=== PATIENT | male | born 1950 | race Caucasian/White ===

== ENCOUNTER 2019-07-01 08:00 | Outpatient (RCR) | payer OTHER ==
--- NOTE | 2019-06-22 16:16 | RS.OPPTEV2 ---
Date of Note: 06/22/19 Visit #: 1 Number of visits approved by Insurance: n/a Date of Evaluation: 06/22/19 Payer Source: MEDICARE Surgery Performed?: No Treatment Diagnosis: rupture of R quadriceps muscle, initial encounter History of Condition/Mechanism of Injury:: Pain began 06/14/19. pt states he had worked out in the gym and then was playing "pickle ball" when he started to run he felt the pain in RLE. Prior Level of Function.....Patient was independent with: ADL's, Self Care, Ambulation/Mobility, Community Integration/Access Level of Function: Independent Functional Limitations: Sleep, Squatting, Community Access/Integration ( difficulty with stairs.) Current Subjective/complaints:: pt states that he is feeling better, however continues to have pain when going up steps. States he feels like his leg will give way. Treatment Side (optional): Right *Precautions: n/a Medical History Surgical History: Cervical Spine Smoking Status: Former smoker Hx Home Medications: xanax Patient's Goals: Get back to playing pickle ball and working out at the gym. Pain Assessment - Pain Description Pain Location: R lat thigh at area of insertion of quads. Pain Description: Aching Current Pain Intensity: 1-2/10 Worst Pain Intensity: 4-5/10 Functional Outcome Measure LE Functional Scale: 43 - G Codes & Severity Modifier G Codes & Modifier: n/a Source of G Code score: n/a Observation - Observation Inspection: pt with increased tightness in L hamstring, tightness on L gastroc. pt also demonstrates Posture: Forward Head, Rounded Shoulders Handedness: Right Gait - Gait Pattern General Gait Pattern Observation: No Deviations/Normal General Range of Motion: BUE WFL's. BLE WFL's Muscle Strength: BUE 5/5. RLE hip flex 5/5, knee flex 5/5, knee ext 4+/5. ankle DF/PF 5/5. LLE 5/5 Palpation Palpation Findings: Tenderness Comments:: tenderness noted in R lat quad to palpation. Sensation - Sensation Right Upper Extremity: Intact/Normal Left Upper Extremity: Intact/Normal Right Lower Extremity: Intact/Normal Left Lower Extremity: Intact/Normal Balance - Sitting Balance Static Sitting Balance: Normal Dynamic Sitting Balance: Normal - Standing Balance Static Standing Balance: Normal Dynamic Standing Balance: Normal - Treatment Modality: Ultrasound Parameters/Method Applied: 1.5w/cm2 x 8 mins Treatment Area: R lat quad Patient Position: Supine Interventions - Exercise/Activities/Manual Therapy Exercises/Activities: pt performed RLE towel stretch, AP, hamstring stretch, QS , HS, SLR x 5 -10 reps Manual Therapy: N/A HOME EXERCISE PROGRAM: pt given written HEP including: towel stretch, hamstring stretch, AP, QS, HS, SLR - Charges Timed Code Treatment Minutes: 49 Total Treatment Time: 54 Procedures billed for this date of service:: eval low, ultrasound EVALUATION COMPLEXITY LEVEL EVALUATION COMPLEXITY LEVEL: HISTORY: Low, EXAM OF BODY SYSTEMS: Low, CLINICAL PRESENTATION: Low, CLINICAL DECISION MAKING: Low Assessment Assessment: pt presents with R quad rupture with pain with mobility. pt also with muscle tightness in R hamstring as well as R gastroc. pt limited with activity due to pain. Patient Education: Home Exercise Program, Education of Plan of Care Rehab Potential: Good Short Term Goals Goal #1: pt independent with HEP Goal to be met by: 07/09/19 Goal #2: pt with no c/o pain at rest R quad. Goal to be met by: 07/09/19 Goal #3: Improve R quad strength 5/5 Goal to be met by: 07/09/19 Goal #4: Improve R hamstring flexibility Goal to be met by: 07/09/19 Registered Nurse First Assistant Goals Goal #1: pt able to return to normal activities including sporting activities Goal to be met by: 07/30/19 Goal #2: pt able to ascend/descend step without pain Goal to be met by: 07/30/19 Goal #3: Hamstring flexibility WFL's RLE Goal to be met by: 07/30/19 Plan - Treatment to be Provided Procedures: Therapeutic Exercises, Therapeutic Activity, Manual Therapy, Massage , Patient Education Modalities: Electrical Stimulation, Ultrasound/Phonophoresis, Class IV Laser, Cryotherapy, Hot Packs - Treatment Plan Frequency: 2-3x a week Duration: 6 weeks Dates of Registered Nurse First Assistant Goals: 07/30/19 Expiration date of current Insurance Approval:: n/a - Treatment Code (1) Rupture of right quadriceps muscle Code(s): S76.111A - STRAIN OF RIGHT QUADRICEPS MUSCLE, FASCIA AND TENDON, INIT Qualifiers: Encounter type: initial encounter Qualified Code(s): S76.111A - Strain of right quadriceps muscle, fascia and tendon, initial encounter (2) Hamstring tightness of right lower extremity Code(s): M62.9 - DISORDER OF MUSCLE, UNSPECIFIED (3) Musculoskeletal pain of right lower extremity Code(s): M79.604 - PAIN IN RIGHT LEG (4) Muscle weakness Code(s): M62.81 - MUSCLE WEAKNESS (GENERALIZED)
--- NOTE | 2019-06-23 11:45 | RS.OPPTDN ---
Subjective Date of Note: 06/23/19 Visit #: 2 Number of visits approved by Insurance: na Date of Evaluation: 06/22/19 Payer Source: MEDICARE Treatment Diagnosis: rupture of R quadriceps muscle, initial encounter Current Subjective/complaints:: Patient reports pain is mainly at the distal lateral quad today. States he noticed an increase in soreness after last session. States he has worked on HEP. *Precautions: n/a Pain Assessment - Pain Description Pain Location: right distal quad Pain Description: soreness Current Pain Intensity: mild to mod - Treatment Modality: Ultrasound Parameters/Method Applied: [id number] at 1.5w/cm2 to the distal right quads, with focus along the lateral quad. Patient Position: Supine Interventions - Exercise/Activities/Manual Therapy Exercises/Activities: Assisted stretching of the right hamstrings, gastroc, and soleus. Assisted stretching of the right quads with LE dropped off table. Instructed in standing wall stretch for gastroc, solues, and standing quad stretch. Total minutes of Exercise: 15mins Manual Therapy: long DTM massage along lateral quad. Instructed patient and demonstrated use of tennis ball and firm roller to massage lateral quad. Total minutes of Manual Therapy: 12mins HOME EXERCISE PROGRAM: pt given written HEP including: towel stretch, hamstring stretch, AP, QS, HS, SLR. Quad stretch ABS. Standing quad stretch. and standing at wall for gastrox and soleus stretches. - Charges Timed Code Treatment Minutes: 39mins Total Treatment Time: 41mins Procedures billed for this date of service:: US, EX, MT Assessment: Patient attentive to patient education and appears motivated to progress and return to exercise and sports activity. Patient Education: Body/Joint mechanics, Home Exercise Program, Home Safety, Activity Modification Comments: Instructed patient in use of stretching and ice to reduce pain. Advised patient to only resume stationary bike and ellpitical machine to avoid excessive stress to right quads. Patient demonstrates compliance with HEP?: Yes Short Term Goals Goal #1: pt independent with HEP Goal to be met by: 07/09/19 Progress towards Goal:: Progressing Goal #2: pt with no c/o pain at rest R quad. Goal to be met by: 07/09/19 Goal #3: Improve R quad strength 5/5 Goal to be met by: 07/09/19 Goal #4: Improve R hamstring flexibility Goal to be met by: 07/09/19 Chcf Goals Goal #1: pt able to return to normal activities including sporting activities Goal to be met by: 07/30/19 Goal #2: pt able to ascend/descend step without pain Goal to be met by: 07/30/19 Goal #3: Hamstring flexibility WFL's RLE Goal to be met by: 07/30/19 Plan Dates of Band Edger Goals: 07/30/19 Expiration date of current Insurance Approval:: 07/30/19 PLAN: Continue modalities, manual therapy, and exercise to reduce pain and return patient to PLOF.
--- NOTE | 2019-06-24 10:45 | RS.OPPTDN ---
Subjective Date of Note: 06/24/19 Visit #: 3 Number of visits approved by Insurance: na Date of Evaluation: 06/22/19 Payer Source: MEDICARE Treatment Diagnosis: rupture of R quadriceps muscle, initial encounter Current Subjective/complaints:: Patient reports an increase in soreness at the right lateral quads and lateral knee joint after last session, but states he expected this. States he has had muscle cramps in the right hamstring with supine quad stretch, but has increased flexibility and decreased muscle soreness after treatment today. *Precautions: n/a Pain Assessment - Pain Description Pain Location: right lateral quad and distal quad Pain Description: Tightness Pain Description: soreness Current Pain Intensity: mild - Treatment Modality: Ultrasound Parameters/Method Applied: 14mins with US at 1.5w/cm2 along the mid length of the lateral right quad, to the lateral right knee joint, and to the insersion just above the patella. US prior to EX and MT. Patient Position: Supine Interventions - Exercise/Activities/Manual Therapy Exercises/Activities: Assisted stretching of the right hamstrings, gastroc, and soleus. Passive stretching of the right piriformis and ITB. Assisted stretching of the right quads with LE dropped off table. Reviewed instruction of standing wall stretch for gastroc, solues, and standing quad stretch. Total minutes of Exercise: 15mins Manual Therapy: Long DTM massage along lateral and mid quad today. Began friction massage along the distal quad and tendon just superior to the right patella. Massage to the right hamstring prior to passive quad stretch to reduce muscle spasm. Total minutes of Manual Therapy: 14mins HOME EXERCISE PROGRAM: pt given written HEP including: towel stretch, hamstring stretch, AP, QS, HS, SLR. Quad stretch ABS. Standing quad stretch. and standing at wall for gastrox and soleus stretches. - Charges Timed Code Treatment Minutes: 43mins Total Treatment Time: 43mins Procedures billed for this date of service:: US, MT, EX Assessment: Patient attentive to all patient education. He is very motivated to progress with exercise and return to working out and sports activity. Patient Education: Body/Joint mechanics, Home Exercise Program Comments: Patient education of muscle function and benefits of alternated heat and ice with HEP. Patient demonstrates compliance with HEP?: Yes Short Term Goals Goal #1: pt independent with HEP Goal to be met by: 07/09/19 Progress towards Goal:: Partially Met Goal #2: pt with no c/o pain at rest R quad. Goal to be met by: 07/09/19 Progress towards Goal:: Progressing Goal #3: Improve R quad strength 5/5 Goal to be met by: 07/09/19 Goal #4: Improve R hamstring flexibility Goal to be met by: 07/09/19 Vibration Analyst Goals Goal #1: pt able to return to normal activities including sporting activities Goal to be met by: 07/30/19 Goal #2: pt able to ascend/descend step without pain Goal to be met by: 07/30/19 Goal #3: Hamstring flexibility WFL's RLE Goal to be met by: 07/30/19 Plan Dates of Vibration Analyst Goals: 07/30/19 Expiration date of current Insurance Approval:: 07/30/19 PLAN: Continue modalities, manual therapy, and exercise to reduce pain and return patient to PLOF.
--- NOTE | 2019-06-29 16:28 | RS.OPPTDN ---
Subjective Date of Note: 06/29/19 Visit #: 4 Number of visits approved by Insurance: na Date of Evaluation: 06/22/19 Payer Source: MEDICARE Treatment Diagnosis: rupture of R quadriceps muscle, initial encounter Current Subjective/complaints:: Patient reports improvement of muscle soreness along the distal right lateral quad and above the patella. States he was able to resume walking for exercise over the weekend with little increase in discomfort. *Precautions: n/a Pain Assessment - Pain Description Pain Location: right lateral quad, quad tension just above right patella Pain Description: soreness Current Pain Intensity: mild - Treatment Modality: Ultrasound Parameters/Method Applied: [id number] at 1.5w/cm2 to the lateral distal quads, and quad tendon just above patella. Patient Position: Supine - Heat/Cryotherapy Treatment: Cryotherapy (Demonstrated ice massage to right distal quad, 5mins. ) Interventions - Exercise/Activities/Manual Therapy Exercises/Activities: Assisted stretching of the right hamstrings, gastroc, and soleus. Passive stretching of the right piriformis and ITB. Assisted stretching of the right quads with LE dropped off table. Reviewed instruction of standing wall stretch for gastroc, solues, and standing quad stretch. Total minutes of Exercise: 12mins Manual Therapy: Long DTM massage along lateral and mid quad today. Friction massage along the distal quad and tendon just superior to the right patella. Total minutes of Manual Therapy: 12mins HOME EXERCISE PROGRAM: pt given written HEP including: towel stretch, hamstring stretch, AP, QS, HS, SLR. Quad stretch ABS. Standing quad stretch. and standing at wall for gastrox and soleus stretches. - Charges Timed Code Treatment Minutes: 39mins Total Treatment Time: 44mins Procedures billed for this date of service:: US, MT, EX Assessment: Pt progressing well with report of decreased pain and increase exercise activity. Patient Education: Home Exercise Program Patient demonstrates compliance with HEP?: Yes Short Term Goals Goal #1: pt independent with HEP Goal to be met by: 07/09/19 Progress towards Goal:: Met Goal #2: pt with no c/o pain at rest R quad. Goal to be met by: 07/09/19 Progress towards Goal:: Partially Met Goal #3: Improve R quad strength 5/5 Goal to be met by: 07/09/19 Progress towards Goal:: Partially Met Goal #4: Improve R hamstring flexibility Goal to be met by: 07/09/19 Nursing Assoc Goals Goal #1: pt able to return to normal activities including sporting activities Goal to be met by: 07/30/19 Progress towards goal: Progressing Goal #2: pt able to ascend/descend step without pain Goal to be met by: 07/30/19 Progress towards goal: Progressing Goal #3: Hamstring flexibility WFL's RLE Goal to be met by: 07/30/19 Progress towards goal: Progressing Plan Dates of Residential Goals: 07/30/19 Expiration date of current Insurance Approval:: 07/30/19 PLAN: Continue modalities and progress exercise to reduce pain and increase functional activity level.
--- NOTE | 2019-07-01 11:31 | RS.OPPTDN ---
Subjective Date of Note: 07/01/19 Visit #: 5 Number of visits approved by Insurance: na Date of Evaluation: 06/22/19 Payer Source: MEDICARE Treatment Diagnosis: rupture of R quadriceps muscle, initial encounter Current Subjective/complaints:: Patient reports he is increasing his workout slowly. States he was able to do a few minutes on the stepper machine with only minimal increase in right quad soreness. States he can go up and down steps/ stairs with min discomfort. *Precautions: n/a Pain Assessment - Pain Description Pain Location: Right lateral quad and quad tendon above patella Pain Description: Tightness Pain Description: soreness Current Pain Intensity: mild to mod sorenss - Treatment Modality: Ultrasound Parameters/Method Applied: [id number] US at 1.5w/cm2 along the lateral quad and the quad tendon just above the patella. Patient Position: Supine Interventions - Exercise/Activities/Manual Therapy Exercises/Activities: Assisted stretching of the right hamstrings, gastroc, and soleus. Passive stretching of the right piriformis and ITB. Stretching of the right quads and hip flexor with LE dropped off table. Isometric knee flexion and extension with hip/knee at 90/90. Total minutes of Exercise: 16mins Manual Therapy: DTM and friction massage along the mid and lateral quads, and to tendon just above patella. Total minutes of Manual Therapy: 15mins HOME EXERCISE PROGRAM: pt given written HEP including: towel stretch, hamstring stretch, AP, QS, HS, SLR. Quad stretch ABS. Standing quad stretch. and standing at wall for gastrox and soleus stretches. - Objective Findings Observations,measurements,etc.: Right quad 4+ to 5/5 with discomfort at lateral quad. Right hamstrings 5/5 MMT. - Charges Timed Code Treatment Minutes: 43mins Total Treatment Time: 45mins Procedures billed for this date of service:: US, MT, EX Assessment: Patient progressing with strength and with working back into full workout. He continues to have quad soreness that limits his activity level. Patient Education: Home Exercise Program Patient demonstrates compliance with HEP?: Yes Short Term Goals Goal #1: pt independent with HEP Goal to be met by: 07/09/19 Progress towards Goal:: Met Goal #2: pt with no c/o pain at rest R quad. Goal to be met by: 07/09/19 Progress towards Goal:: Partially Met Comments:: mild discomfort at rest Goal #3: Improve R quad strength 5/5 Goal to be met by: 07/09/19 Progress towards Goal:: Partially Met Comments:: 4+ to 5/5 with discomfort at lateral quad Goal #4: Improve R hamstring flexibility Goal to be met by: 07/09/19 Floor Sweeper Goals Goal #1: pt able to return to normal activities including sporting activities Goal to be met by: 07/30/19 Progress towards goal: Progressing Goal #2: pt able to ascend/descend step without pain Goal to be met by: 07/30/19 Progress towards goal: Partially Met Comments: Reports ascend/descent steps with mild discomfort Goal #3: Hamstring flexibility WFL's RLE Goal to be met by: 07/30/19 Progress towards goal: Progressing Plan Dates of Jail Goals: 07/30/19 Expiration date of current Insurance Approval:: 07/30/19 PLAN: Continue modalities and progress exercise to reduce pain and return patient to PLOF.
== END 2019-07-03 23:59 ==
PROVIDERS: ATTEND Orthopaedic Surgery
DX: S76.111D Strain of right quadriceps muscle, fascia and tendon, subsequent encounter (principal)

== ENCOUNTER 2025-07-22 16:56 | Inpatient (IN) ==
[2025-07-22 18:03] LABS: IMMATURE GRANULOCYTE # (AUTO) 0.2 (0.0-1.0); IMMATURE GRANULOCYTE % (AUTO) 0.8 % (0.0-5.0); RDW COEFFICIENT OF VARIATION 12.2 % (11.6-14.8)
[2025-07-22 18:13] LABS: CREATININE 0.91 mg/dL (0.60-1.10)
--- NOTE | 2025-07-22 19:00 | ED.PDOC ---
General HPI ED Provider: Dr. JARED CLEANING MD Chief Complaint: Extremity Swelling/Pain Stated Complaint: 74 years old male comes emergency room for left forearm cellulitis. Patient was seen here yesterday for the same problem received 2 g of Ancef IV and discharged home with Keflex he was instructed if he sees the problem worsening to come back to the emergency room. Patient reports that the swelling has been getting worse and the redness has extended to his left arm and left hand. Denies any fever no chest pain or shortness of breath no nausea or vomiting no change in bowel or urine. Time Seen by Provider: 07/22/25 17:20 Information Source: Patient Primary Care Provider: LETTY LANIER Nursing and Triage Documentation Reviewed and Agree: Yes Opioid Naive vs. Tolerant What is Opioid Naive?: *Opioid Naive implies the patient is not already taking opioids or not chronically receiving opioids on a daily basis. *PRN dosing is not "usually" associated with tolerance. *Patients are at higher risk of over-sedation and aspiration. What is Opioid Tolerant?: *Opioid Tolerance implies less than the expected response to an opioid. *Acquired tolerance is defined by the patient taking 60mg of oral morphine daily (or equianalgesic dose of another opioid) for 1 week or more. *Often associated with chronic pain. *May take more than usual dose to achieve desired pain control. Review of Systems Review Of Systems Constitutional: Reports No symptoms All Other Systems: Reviewed and Negative [facility] Medical History Anterior cervical adenopathy anterior cervical fusion in the R59.0 - Localized enlarged lymph nodes (ICD-10) Pneumonia J18.9 - Pneumonia, unspecified organism (ICD-10) Family History (Updated 07/22/25 @ 21:41 by NYASIA SANDOVAL RN) FATHER Colon cancer Mother Old age Social History (Updated 07/22/25 @ 21:47 by NYASIA SANDOVAL RN) Smoking and tobacco status: Former smoker Alcohol intake: never Substance use type: does not use Trisha/scientologist: TENRIISM Physical Exam Physical Exam Appearance: Reports Well-appearing Respiratory: Reports Airway patent, Breath sounds clear and Breath sounds equal Cardiovascular: Reports RRR, Pulses normal, No rub and No murmur Musculoskeletal: Reports Normal strength, ROM intact and Edema (And erythema of the left forearm extended to the lower arm and proximal hand intact radial pulse no signs of compartment syndrome intact sensations in the left hand no definitive induration or fluctuation or fluid to be drained) Skin: Reports Warm and Normal color Neurological: Reports Sensation intact and Motor intact Psychiatric: Reports Affect appropriate Course Course 07/22/25 17:47 07/22/25 17:47 Orders, Labs, Meds: Lab Review 07/22/25 17:47 WBC 20.31 H RBC 4.37 L Hgb 13.7 L Hct 40.7 L MCV 93.1 MCH 31.4 H MCHC 33.7 RDW Coeff of Leonor 12.2 Plt Count 117 L Immature Gran % (Auto) 0.8 Neut % (Auto) 91.3 H Lymph % (Auto) 3.3 L Benton % (Auto) 3.6 Eos % (Auto) 0.8 Baso % (Auto) 0.2 Neut # (Auto) 18.5 H Lymph # (Auto) 0.7 Benton # (Auto) 0.7 Eos # (Auto) 0.2 Baso # (Auto) 0.0 Immature Gran # (Auto) 0.2 Sodium 136.7 Potassium 4.04 Chloride 106.5 Carbon Dioxide 24.9 Anion Gap 9.34 BUN 23.3 H Creatinine 0.91 D Estimated GFR (MDRD) 81.00 BUN/Creatinine Ratio 25.60 Glucose 128.3 H Lactic Acid 0.92 Calcium 8.65 Total Bilirubin 0.98 AST 28.0 ALT 22.9 Alkaline Phosphatase 85.7 Total Protein 6.01 L Albumin 3.55 Globulin 2.46 Albumin/Globulin Ratio 1.44 Orders Category Date Time Status ADMIT PATIENT INPATIENT .TO [facility] (NON-MONITORED ADMISSION 07/22/25 19:00 Active BED) BLOOD CULTURE (ED ONLY) Stat LAB 07/22/25 17:55 Received CBC W/ AUTO DIFF Stat LAB 07/22/25 17:47 Completed CMP [COMPREHENSIVE METABOLIC PANEL] Stat LAB 07/22/25 17:47 Completed LACTIC ACID Stat LAB 07/22/25 17:47 Completed Cefazolin Sodium/Dextrose,Iso [Ancef 2 gm/50 ml Premix] Meds 07/22/25 18:38 Discontinued 2 gm in 50 ml IV ONCE Medications Generic Name Dose Route Start Last Admin Trade Name Freq PRN Reason Stop Dose Admin Acetaminophen 650 mg 07/22/25 20:22 Acetaminophen 325 Mg Tablet PO Q4H PRN Mild Pain Hydrocodone Bitart/Acetaminophen 1 tab 07/22/25 20:22 Hydrocodone Bit/Acetaminophen 5/325 Mg Tablet PO Q6HR PRN MODERATE PAIN Alprazolam 1 mg 07/22/25 20:25 07/22/25 22:07 Alprazolam 0.5 Mg Tablet PO 1 mg DAILY PRN Administration anxiety Cholecalciferol 1,000 unit 07/23/25 09:00 Cholecalciferol (Vitamin D3) 1,000 Unit (25 Mcg) Tablet PO DAILY SHIVANI Diclofenac Sodium 75 mg 07/22/25 20:25 07/22/25 22:08 Diclofenac Sodium 75 Mg Tablet.Dr PO 75 mg 2XD PRN Administration pain Cefazolin Sodium/Dextrose 2 gm in 50 mls @ 75 mls/hr 07/23/25 02:30 Ancef 2 Gm/50 Ml Premix IV 07/26/25 02:29 Q8HR SHIVANI Ondansetron HCl 4 mg 07/22/25 20:22 Ondansetron Hcl/Pf 4 Mg/2 Ml Sdv IVP Q6H PRN Nausea / Vomiting Tamsulosin HCl 0.4 mg 07/23/25 09:00 Tamsulosin Hcl 0.4 Mg Cap.Er.24h PO DAILY SHIVANI Discontinued Medications Generic Name Dose Route Start Last Admin Trade Name Freq PRN Reason Stop Dose Admin Cefazolin Sodium/Dextrose 2 gm in 50 mls @ 75 mls/hr 07/22/25 18:38 07/22/25 19:11 Ancef 2 Gm/50 Ml Premix IV 07/22/25 19:17 75 mls/hr ONCE ONE Administration Vital Signs: Temp Pulse Resp BP Pulse Ox 07/22/25 17:18 97.3 F L 74 16 157/77 H 95 Patient with left upper extremity cellulitis white blood cell count 20,000 with left shift patient is not septic but given the high white cell count and the failure to improve with oral antibiotics patient will need to be admitted for IV antibiotics he was given 2 g of Ancef here in the emergency room and his case was discussed with the hospitalist on-call Angelic and she accepted the patient to be admitted for further IV antibiotics. Discharge Plan Discharge Patient Disposition: ADMITTED INPATIENT Discharge Problem: Cellulitis of left upper extremity Did you review [place] [employer] WORKER for ALL controlled substances?: Not Applicable ED Provider: JARED CLEANING Condition: Stable
[2025-07-22] MEDS: ANCEF 2 GM/50 ML PREMIX 2 GM/50 ML BAG IV ONE (19:11)
[2025-07-22] MEDS: XANAX PO PRN (22:07)
[2025-07-22] MEDS: VOLTAREN PO PRN (22:08)
[2025-07-22 22:22] VITALS: BMI 30.5
[2025-07-23] MEDS: ZOFRAN SDV IVP PRN (01:28)
[2025-07-23] MEDS: TYLENOL PO PRN (01:29)
[2025-07-23] MEDS: ANCEF 2 GM/50 ML PREMIX 2 GM/50 ML BAG IV SCH ×2 (01:30→09:19)
[2025-07-23 05:30] LABS: IMMATURE GRANULOCYTE # (AUTO) 0.3 (0.0-1.0); IMMATURE GRANULOCYTE % (AUTO) 1.6 % (0.0-5.0); RDW COEFFICIENT OF VARIATION 12.2 % (11.6-14.8)
[2025-07-23 05:43] LABS: CREATININE 0.87 mg/dL (0.60-1.10)
[2025-07-23] MEDS: NORCO 5-325 PO PRN (09:18)
[2025-07-23] MEDS: VITAMIN D PO SCH (09:18)
[2025-07-23] MEDS: FLOMAX PO SCH (09:18)
--- NOTE | 2025-07-23 10:13 | PCM ---
Date of Service Date Seen by Provider: 07/23/25 Time Seen by Provider: 08:30 Admit Day/Time Admission Date: 07/22/25 Admission Time: 19:00 Reason for Admission Chief Complaint: LFT UPPER EXTREMITY CELLULITIS Hospital Provider Hospital Provider: SANNA NEW PA-C, [facility] Primary Care Physician Primary Care Physician: LETTY LANIER History of Present Illness History of Present Illness: Patient is a 74-year-old male with past medical history of BPH, overall healthy gentleman who presented to the ER for the second time with left upper extremity cellulitis. Patient presented on for worsening redness and swelling of his left arm. He states that he works in [employer] and is often having small scrapes on his arms. He was noted to have a white count of 23, lactic of 3. He was given fluids and antibiotics and ultimately was discharged home. He states he took a couple doses of the Keflex he was prescribed but his arm continued to worsen. He presented again on 07/22. White blood cell count is 20. Patient has swelling and erythema of his left extremity. He was given cefazolin. Admitted to [facility]. Patient states his arm feels somewhat better today. He continues to have swelling. No specific joint pain. He has good range of motion of his joints. Overall no significant pain. White blood cell count minimally improved this morning. Patient did have a fever of 101.6 overnight and an episode of vomiting. He feels better now. A1c was 5.12. Patient is an avid pickleball player and fisherman. He is normally very active. Case Discussed With Case Discussed With: Patient's case was discussed with the ER Physicians, Dr. Wallace. [facility] Medical History Anterior cervical adenopathy anterior cervical fusion in the R59.0 - Localized enlarged lymph nodes (ICD-10) Pneumonia J18.9 - Pneumonia, unspecified organism (ICD-10) Family History (Updated 07/22/25 @ 21:41 by NYASIA SANDOVAL RN) FATHER Colon cancer Mother Old age Social History (Updated 07/22/25 @ 21:47 by NYASIA SANDOVAL RN) Smoking and tobacco status: Former smoker Alcohol intake: never Substance use type: does not use Trisha/zoroastrian: SYNAGOGUE Allergies Allergies Allergy/AdvReac Type Severity Reaction Status Date / Time No Known Allergies Allergy Verified 07/22/25 17:23 Current Medications Home Medications Acetaminophen (Acetaminophen 325 Mg Tablet) 650 mg PO Q4H PRN PRN Reason: Mild Pain Last Admin: 07/23/25 01:29 Dose: 650 mg Hydrocodone Bitart/Acetaminophen (Hydrocodone Bit/Acetaminophen 5/325 Mg Tablet) 1 tab PO Q6HR PRN PRN Reason: MODERATE PAIN Last Admin: 07/23/25 09:18 Dose: 1 tab Alprazolam (Alprazolam 0.5 Mg Tablet) 1 mg PO DAILY PRN PRN Reason: anxiety Last Admin: 07/22/25 22:07 Dose: 1 mg Cholecalciferol (Cholecalciferol (Vitamin D3) 1,000 Unit (25 Mcg) Tablet) 1,000 unit PO DAILY SHIVANI Last Admin: 07/23/25 09:18 Dose: 1,000 unit Diclofenac Sodium (Diclofenac Sodium 75 Mg Tablet.Dr) 75 mg PO 2XD PRN PRN Reason: pain Last Admin: 07/23/25 09:18 Dose: 75 mg Cefazolin Sodium/Dextrose (Ancef 2 Gm/50 Ml Premix) 2 gm in 50 mls @ 75 mls/hr IV Q8HR SHIVANI Stop: 07/26/25 07:59 Last Admin: 07/23/25 09:19 Dose: 75 mls/hr Ondansetron HCl (Ondansetron Hcl/Pf 4 Mg/2 Ml Sdv) 4 mg IVP Q6H PRN PRN Reason: Nausea / Vomiting Last Admin: 07/23/25 01:28 Dose: 4 mg Sodium Chloride (0.9% Sodium Chloride 10 Ml Disp.Syrin) 1 syr IVF PRN PRN PRN Reason: as needed Last Admin: 07/23/25 01:33 Dose: 1 syr Tamsulosin HCl (Tamsulosin Hcl 0.4 Mg Cap.Er.24h) 0.4 mg PO DAILY SHIVANI Last Admin: 07/23/25 09:18 Dose: 0.4 mg alprazolam 1 mg tablet (Xanax) 1 mg PO QDAY 11/23/19 [History Confirmed 07/22/25] cephalexin 500 mg capsule 500 mg PO Q8H #30 caps 07/21/25 [Rx Confirmed 07/22/25] cholecalciferol (vitamin D3) 25 mcg (1,000 unit) capsule 25 mcg PO DAILY 07/21/25 [History Confirmed 07/22/25] diclofenac sodium 75 mg tablet,delayed release 75 mg PO 2XD 07/21/25 [History Confirmed 07/22/25] tamsulosin 0.4 mg capsule 0.4 mg PO DAILY 07/21/25 [History Confirmed 07/22/25] Opioid Naive vs. Tolerant Does Patient Take Opioids?: No Is Patient Opioid Naive?: Yes What is Opioid Naive?: *Opioid Naive implies the patient is not already taking opioids or not chronically receiving opioids on a daily basis. *PRN dosing is not "usually" associated with tolerance. *Patients are at higher risk of over-sedation and aspiration. Is Patient Opioid Tolerant?: No What is Opioid Tolerant?: *Opioid Tolerance implies less than the expected response to an opioid. *Acquired tolerance is defined by the patient taking 60mg of oral morphine daily (or equianalgesic dose of another opioid) for 1 week or more. *Often associated with chronic pain. *May take more than usual dose to achieve desired pain control. Review of Systems Constitutional: Reports Fever and Fatigue Head: Reports Normocephalic and Atraumatic Cardiovascular: Denies Chest pain or Chest Pressure Respiratory: Denies Cough or Shortness of air Gastrointestinal: Denies Nausea, Vomiting, Diarrhea, Abdominal pain or Melena Genitourinary: Denies Hematuria or Frequency Dermatologic: Reports Other (left arm cellulitis ) Physical examination Most Recent Vital Signs: Most Recent Vital Signs Temperature 98.1 F 07/23/25 05:11 Temperature Source Oral 07/23/25 05:11 Temperature Source Infrared 07/22/25 17:18 Pulse Rate 71 07/23/25 05:11 Respiratory Rate 18 07/23/25 05:11 Blood Pressure 139/73 07/23/25 05:11 Blood Pressure Mean 95 07/23/25 05:11 Blood Pressure Right Arm 167/86 07/22/25 20:49 Blood Pressure Location Right Arm 07/23/25 05:11 Blood Pressure Position Supine 07/23/25 05:11 O2 Sat by Pulse Oximetry 96 07/23/25 05:11 Oxygen Delivery Method Room Air 07/23/25 05:11 Height 5 ft 8 in 07/22/25 20:49 Weight 91.2 kg 07/22/25 20:49 Appearance: Positive No Apparent Distress and Alert and Oriented x3 Skin: Positive [place], Warm, Good Turgor and Good Color HEENT: Positive Normocephalic and Atraumatic Neck: Positive Supple and Midline Trachea Chest/Lungs: Positive Clear to Auscultation Bilaterally; Negative Rales, Rhonci or Wheezes Heart: Positive RRR GI/: Positive Soft, Nontender, Bowel Sounds Normal and No Distention Neurological: Positive Cranial Nerves Intact, Alert, Oriented and Muscle Strength 5/5 in Upper and Lower Extremities Bilaterally Psychiatric: Positive Oriented x4, Appropriate Mood and Appropriate Affect Additional Findings: left upper ext - pulses and sensation intact, generalized swelling noted but no induration or fluctuance noted. Has most swelling proximal arm. Good ROM of joints with no significant pain. Labs This Visit Labs This Visit: Labs This Visit 07/22/25 07/23/25 17:47 05:15 WBC 20.31 H 19.47 H RBC 4.37 L 4.13 L Hgb 13.7 L 12.9 L Hct 40.7 L 39.4 L MCV 93.1 95.4 H MCH 31.4 H 31.2 H MCHC 33.7 32.7 RDW Coeff of Leonor 12.2 12.2 Plt Count 117 L 115 L Immature Gran % (Auto) 0.8 1.6 Neut % (Auto) 91.3 H 89.5 H Lymph % (Auto) 3.3 L 3.5 L Robertson % (Auto) 3.6 4.2 Eos % (Auto) 0.8 0.9 Baso % (Auto) 0.2 0.3 Neut # (Auto) 18.5 H 17.4 H Lymph # (Auto) 0.7 0.7 Robertson # (Auto) 0.7 0.8 Eos # (Auto) 0.2 0.2 Baso # (Auto) 0.0 0.1 Immature Gran # (Auto) 0.2 0.3 Sodium 136.7 134.1 L Potassium 4.04 4.05 Chloride 106.5 107.3 H Carbon Dioxide 24.9 23.6 Anion Gap 9.34 7.25 BUN 23.3 H 18.3 Creatinine 0.91 D 0.87 Estimated GFR (MDRD) 81.00 86.00 BUN/Creatinine Ratio 25.60 21.03 Glucose 128.3 H 123.1 H Hemoglobin A1c 5.12 Lactic Acid 0.92 Calcium 8.65 8.52 Total Bilirubin 0.98 0.67 AST 28.0 48.4 ALT 22.9 36.0 Alkaline Phosphatase 85.7 107.0 Total Protein 6.01 L 5.67 L Albumin 3.55 3.18 L Globulin 2.46 2.49 Albumin/Globulin Ratio 1.44 1.27 Procalcitonin 0.46 H Review Statement Review Statement: I have independently reviewed and interpreted the labs/EKGs/imaging that were ordered by the ER provider. I have reviewed all outside records that are available currently in our EMR including imaging/notes/labs from previous visits. Plan Plan: 1. Acute cellulitis of left upper extremity, failed outpatient abx - Cont cefazolin, mrsa swab pending, pain control. Trend wbc count. Tylenol prn fever. A1c normal. Ice prn. 2. BPH - Cont home meds 3. Thrombocytopenia - mildly worsened. Will need outpt follow up to ensure improvement following infection. DVT Prophylaxis: Avoiding in light of thrombocytopenia Time Spent: Greater than 80 minutes spent with patient, 50% of the time spent with this patient was devoted to counseling and coordination of care. Advanced Care Plannin minutes spent discussing advance care planning. Admit to: Inpatient Discussed Plan of Care with Dr. Gabe Mckeon. Medications Medication Orders: Medications Ordered Category Date Time Status 0.9 % Sodium Chloride [Saline Flush] Meds 07/23/25 01:31 Active 1 syr IVF PRN PRN Acetaminophen [Tylenol] Meds 07/22/25 20:22 Active 650 mg PO Q4H PRN Alprazolam [Xanax] Meds 07/22/25 20:25 Active 1 mg PO DAILY PRN anxiety Cefazolin Sodium/Dextrose,Iso [Ancef 2 gm/50 ml Premix] Meds 07/23/25 08:00 Active 2 gm in 50 ml IV Q8HR Cholecalciferol (Vitamin D3) [Vitamin D] Meds 07/23/25 09:00 Active 1,000 unit PO DAILY Diclofenac Sodium [Voltaren] Meds 07/22/25 20:25 Active 75 mg PO 2XD PRN pain Hydrocodone Bit/Acetaminophen [[place] 5-325] Meds 07/22/25 20:22 Active 1 tab PO Q6HR PRN Ondansetron HCl/Pf [Zofran Sdv] Meds 07/22/25 20:22 Active 4 mg IVP Q6H PRN Tamsulosin HCl [Flomax] Meds 07/23/25 09:00 Active 0.4 mg PO DAILY
[2025-07-24 05:20] LABS: IMMATURE GRANULOCYTE # (AUTO) 0.1 (0.0-1.0); IMMATURE GRANULOCYTE % (AUTO) 0.8 % (0.0-5.0); RDW COEFFICIENT OF VARIATION 12.1 % (11.6-14.8)
[2025-07-24 05:37] LABS: CREATININE 0.89 mg/dL (0.60-1.10)
[2025-07-24] MEDS: VANCOMYCIN 750 MG/150 ML BAG 750 MG/150 ML BAG IV ONE (09:18)
[2025-07-24] MEDS: VANCOMYCIN 1.5 GRAM/300 ML PREMIX 1.5 GM/300 ML BAG IV ONE (10:05)
[2025-07-24] MEDS: FLORASTOR PO SCH (10:06)
--- NOTE | 2025-07-24 10:59 | PCM.PROG ---
Date/Time Seen Date Seen by Provider: 07/24/25 Time Seen by Provider: 09:00 Provider Provider: SANNA NEW PA-C, [facility] Chief Complaint Chief Complaint: LFT UPPER EXTREMITY CELLULITIS Subjective Subjective: Patients labs on paper have improved but his erythema has worsened and spread. No fever overnight. Clinically feels good except for the worsening erythema. BP has been running high. States he's noticed it being higher the last couple months. Objective Appearance: Positive Well-appearing, Well-nourished, No Apparent Distress and Alert and Oriented x3 Chest/Lungs: Positive Clear to Auscultation Bilaterally; Negative Rales, Rhonci or Wheezes Heart: Positive RRR GI/: Positive Soft, Nontender, Bowel Sounds Normal and No Distention Neurological: Positive Cranial Nerves Intact, Alert, Oriented and Muscle Strength 5/5 in Upper and Lower Extremities Bilaterally Additional Findings: LUE - erythema has worsened outside of the lines drawn, no induration or fluctuance noted, compartments are soft, sensation and pulses intact, no pain with palpation, good ROM of all joints. Vital Signs Vital Signs: Vital Signs: Last 24 Hours 07/23/25 14:00 07/23/25 19:29 07/23/25 21:19 Temperature 98.5 F 98.8 F Temperature Source Oral Temporal Artery Scan Pulse Rate 85 67 Respiratory Rate 20 20 Blood Pressure 183/93 H 165/80 H Blood Pressure Mean 123 108 Blood Pressure Location Right Arm Right Arm Blood Pressure Position Supine Supine O2 Sat by Pulse Oximetry 96 94 L Oxygen Delivery Method Room Air Room Air Room Air 07/24/25 05:15 Temperature 98 F Temperature Source Temporal Artery Scan Pulse Rate 61 Respiratory Rate 18 Blood Pressure 133/49 L Blood Pressure Mean 77 Blood Pressure Location Right Arm Blood Pressure Position Supine O2 Sat by Pulse Oximetry 95 Oxygen Delivery Method Room Air Lab Results Lab Results: Lab Results: Last 24 Hours 07/24/25 05:07 WBC 15.84 H RBC 3.94 L Hgb 12.4 L Hct 37.6 L MCV 95.4 H MCH 31.5 H MCHC 33.0 RDW Coeff of Leonor 12.1 Plt Count 131 L Immature Gran % (Auto) 0.8 Neut % (Auto) 85.6 H Lymph % (Auto) 5.6 L [place] % (Auto) 4.9 Eos % (Auto) 2.8 Baso % (Auto) 0.3 Neut # (Auto) 13.6 H Lymph # (Auto) 0.9 [place] # (Auto) 0.8 Eos # (Auto) 0.5 Baso # (Auto) 0.0 Immature Gran # (Auto) 0.1 Sodium 134.2 L Potassium 3.78 Chloride 104.9 Carbon Dioxide 27.1 Anion Gap 5.98 BUN 17.0 Creatinine 0.89 Estimated GFR (MDRD) 84.00 BUN/Creatinine Ratio 19.10 Glucose 108.3 H Calcium 8.49 Total Bilirubin 0.55 AST 33.1 ALT 27.1 Alkaline Phosphatase 125.6 H Total Protein 5.54 L Albumin 3.02 L Globulin 2.52 Albumin/Globulin Ratio 1.19 Procalcitonin 0.31 H Additional Comments Additional Comments: I have independently reviewed and interpreted the labs/EKGs/imaging ordered during this hospital stay. I have reviewed outside records that are available in our EMR that pertain to medical stay including imaging/notes/labs from previous visits. Active Medications Active Medications: Medications Generic Name Dose Route Start Last Admin Trade Name Freq PRN Reason Stop Dose Admin Acetaminophen 650 mg 07/22/25 20:22 07/23/25 01:29 Acetaminophen 325 Mg Tablet PO 650 mg Q4H PRN Administration Mild Pain Hydrocodone Bitart/Acetaminophen 1 tab 07/22/25 20:22 07/23/25 09:18 Hydrocodone Bit/Acetaminophen 5/325 Mg Tablet PO 1 tab Q6HR PRN Administration MODERATE PAIN Alprazolam 1 mg 07/22/25 20:25 07/23/25 21:47 Alprazolam 0.5 Mg Tablet PO 1 mg DAILY PRN Administration anxiety Cholecalciferol 1,000 unit 07/23/25 09:00 07/24/25 08:33 Cholecalciferol (Vitamin D3) 1,000 Unit (25 Mcg) Tablet PO 1,000 unit DAILY SHIVANI Administration Diclofenac Sodium 75 mg 07/22/25 20:25 07/23/25 21:47 Diclofenac Sodium 75 Mg Tablet. PO 75 mg 2XD PRN Administration pain VANCOMYCIN/WATER FOR INJ (PEG) 1.5 gm in 300 mls @ 200 mls/hr 07/24/25 10:00 07/24/25 10:05 Vancomycin 1.5 Gram/300 Ml Premix IV 07/24/25 11:29 200 mls/hr ONCE ONE Administration VANCOMYCIN/WATER FOR INJ (PEG) 1.25 gm in 250 mls @ 250 mls/hr 07/24/25 21:00 Vancomycin 1.25 Gm/250 Ml Bag IV 07/27/25 20:59 Q12HR SHIVANI Ampicillin Sodium/Sulbactam 100 mls @ 200 mls/hr 07/24/25 12:00 Sodium 3 gm/ Sodium Chloride IV 07/27/25 11:59 Q6HR SHIVANI Ondansetron HCl 4 mg 07/22/25 20:22 07/23/25 01:28 Ondansetron Hcl/Pf 4 Mg/2 Ml Sdv IVP 4 mg Q6H PRN Administration Nausea / Vomiting Saccharomyces Boulardii 250 mg 07/24/25 09:30 07/24/25 10:06 Saccharomyces Boulardii 250 Mg Capsule PO 250 mg BID SHIVANI Administration Sodium Chloride 1 syr 07/23/25 01:31 07/23/25 20:24 0.9% Sodium Chloride 10 Ml Disp.Syrin IVF 1 syr PRN PRN Administration as needed Tamsulosin HCl 0.4 mg 07/23/25 09:00 07/24/25 08:33 Tamsulosin Hcl 0.4 Mg Cap.Er.24h PO 0.4 mg DAILY SHIVANI Administration Plan Plan: 1. Acute cellulitis of left upper extremity, failed outpatient abx - Will change to unasyn and add vanc for broader coverage, mrsa swab pending, pain control. Trend wbc count. Tylenol prn fever. A1c normal. Ice prn. 2. BPH - Cont home meds 3. Thrombocytopenia - Improved today. Will need outpt lab follow up to ensure improvement following infection. 4. Hypertension - Patient states this has been ongoing last couple months. Will start low dose lisinopril. DVT Prophylaxis: Avoiding in light of thrombocytopenia Review Statement Review Statement: I have personally discussed and reviewed the patient's visit/currently labs/imaging/decision making with Dr. Mckeon, my supervising attending. Greater that 50 minutes spent with patient, 50% of the time spent with this patient was devoted to counseling and coordination of care.
[2025-07-24] MEDS: ZESTRIL PO SCH (11:52)
[2025-07-24] MEDS: UNASYN 3 GM in SODIUM CHLORIDE 100ML 100 ML IV SCH (13:08)
[2025-07-24] MEDS: VANCOMYCIN 1.25 GM/250 ML BAG 1.25 GM/250 ML BAG IV SCH (20:57)
[2025-07-24 21:10] LABS: CREATININE 0.96 mg/dL (0.60-1.10)
[2025-07-25 05:36] LABS: IMMATURE GRANULOCYTE # (AUTO) 0.1 (0.0-1.0); IMMATURE GRANULOCYTE % (AUTO) 1.1 % (0.0-5.0); RDW COEFFICIENT OF VARIATION 11.9 % (11.6-14.8)
[2025-07-25 05:46] LABS: CREATININE 0.8 mg/dL (0.60-1.10)
--- NOTE | 2025-07-25 09:32 | DCSUM ---
Admission Date Admission Date: 07/22/25 Discharge Date Discharge Date: 07/25/25 Admission Diagnosis Admission Diagnosis: 1. Acute cellulitis of left upper extremity, failed outpatient abx 2. BPH 3. Thrombocytopenia Discharge Diagnosis Discharge Diagnosis: 1. Acute cellulitis of left upper extremity, failed outpatient abx - Improving 2. BPH - Chronic, stable 3. Thrombocytopenia - Resolved 4. Hypertension - Patient states this has been ongoing last couple months. Started lisinopril 10 mg daily during stay Hospital Provider Hospital Provider: LOLA PETIT, [facility] Primary Care Physician Primary Care Physician: LETTY LANIER Summary of History and Physical Summary of History and Physical: Patient is a 74-year-old male with past medical history of BPH, overall healthy gentleman who presented to the ER for the second time with left upper extremity cellulitis. Patient presented on for worsening redness and swelling of his left arm. He states that he works in [employer] and is often having small scrapes on his arms. He was noted to have a white count of 23, lactic of 3. He was given fluids and antibiotics and ultimately was discharged home. He states he took a couple doses of the Keflex he was prescribed but his arm continued to worsen. He presented again on 07/22. White blood cell count is 20. Patient has swelling and erythema of his left extremity. He was given cefazolin. Admitted to [facility]. Patient states his arm feels somewhat better today. He continues to have swelling. No specific joint pain. He has good range of motion of his joints. Overall no significant pain. White blood cell count minimally improved this morning. Patient did have a fever of 101.6 overnight and an episode of vomiting. He feels better now. A1c was 5.12. Patient is an avid pickleball player and fisherman. He is normally very active. Hospital Course Subjective: Patient was initially treated for acute cellulitis of left upper extremity due to failing outpatient keflex with cefazolin. Arm continued to swell and spread further up the arm as well as fever. Switched coverage to unasyn and vanc. MRSA swab obtained and negative. White blood cell count has trended down and is 13 today. Thrombocytopenia present on admission and likely due to infection. Platelets have returned to normal as of this am. BP was noted to be trending high and started lisinopril 10 mg daily which has shown improvements. Patient has not had a fever >24 hours. Feeling much better and arm is improving greatly. Discussed antibiotic regimen with pharmacy and agree that augmentin is appropriate choice. Sent Rx to complete 7 day course as well as norco for pain, florastor to prevent further infections, and lisinopril. Discussed to contact provider if fever returns or arm worsens. Follow-up with PCP later this week. Appearance: Pleasant, No Apparent Distress and Alert HEENT: MMM, Supple and No JVD CVS: No Murmur Abdomen: Soft, Non-Tender and No Distention Respiratory: No Dyspnea Extremities: No Calf Tenderness and Other (mild erythema and swelling to L lower arm, no open areas or noted drainage) Vital Signs: Most Recent Vital Signs Temperature 97.6 F 07/25/25 05:38 Temperature Source Temporal Artery Scan 07/25/25 05:38 Temperature Source Infrared 07/22/25 17:18 Pulse Rate 57 L 07/25/25 05:38 Respiratory Rate 16 07/25/25 05:38 Blood Pressure 150/86 H 07/25/25 05:38 Blood Pressure Mean 107 07/25/25 05:38 Blood Pressure Right Arm 167/86 07/22/25 20:49 Blood Pressure Location Right Arm 07/25/25 05:38 Blood Pressure Position Supine 07/25/25 05:38 O2 Sat by Pulse Oximetry 95 07/25/25 05:38 Oxygen Delivery Method Room Air 07/25/25 05:38 Height 5 ft 8 in 07/22/25 20:49 Weight 91.2 kg 07/22/25 20:49 Lab Results Last 24 Hours: 07/25/25 07/24/25 05:26 20:48 WBC 13.01 H RBC 3.99 L Hgb 12.5 L Hct 37.4 L MCV 93.7 MCH 31.3 H MCHC 33.4 RDW Coeff of Leonor 11.9 Plt Count 149 Immature Gran % (Auto) 1.1 Neut % (Auto) 80.2 H Lymph % (Auto) 8.5 L [place] % (Auto) 6.8 Eos % (Auto) 3.0 Baso % (Auto) 0.4 Neut # (Auto) 10.4 H Lymph # (Auto) 1.1 [place] # (Auto) 0.9 Eos # (Auto) 0.4 Baso # (Auto) 0.1 Immature Gran # (Auto) 0.1 Sodium 137.1 134.8 Potassium 3.79 3.53 Chloride 105.8 103.6 Carbon Dioxide 26.2 29.5 Anion Gap 8.89 5.23 BUN 15.2 18.7 Creatinine 0.80 0.96 Estimated GFR (MDRD) 94.00 77.00 BUN/Creatinine Ratio 19.00 19.47 Glucose 106.2 H 120.1 H Calcium 8.34 L 8.37 L Total Bilirubin 0.46 AST 39.9 ALT 28.0 Alkaline Phosphatase 149.8 H Total Protein 5.71 L Albumin 3.05 L Globulin 2.66 Albumin/Globulin Ratio 1.14 Discharge Instructions Discharge Planning: Discharge Planning > 40 minutes If patient is discharged with left ventricular systolic dysfunction: na Discharged with a beta kathleen? [] If no, why not? [] Discharged with an chhaya/arb? [] If no, why not? [] Discharge Medications: Medications at Discharge (Home Meds & RX) alprazolam 1 mg tablet (Xanax) 1 mg PO QDAY 11/23/19 cholecalciferol (vitamin D3) 25 mcg (1,000 unit) capsule 25 mcg PO DAILY 07/21/25 diclofenac sodium 75 mg tablet,delayed release 75 mg PO 2XD 07/21/25 tamsulosin 0.4 mg capsule 0.4 mg PO DAILY 07/21/25 Saccharomyces boulardii 250 mg capsule (Florastor) 250 mg PO BID #12 caps 07/25/25 amoxicillin 875 mg-potassium clavulanate 125 mg tablet 1 tab PO BID 5 days #11 tabs 07/25/25 hydrocodone 5 mg-acetaminophen 325 mg tablet 1 tab PO Q6HR PRN pain #15 tabs 07/25/25 lisinopril 10 mg tablet 10 mg PO DAILY #30 tabs 07/25/25 Discharge Plan Discharge Discharge Orders: Discharge Patient (ONCE); Ordered 07/25/25 Ordered By: MILTON RUANO Activity Restrictions/Additional Instructions: Diagnosis: Cellulitis Diet: Low salt Activity as tolerated Medications: [facility] [place] * Augmentin 875 (Antibiotic) - take twice a day until completed, next dose this evening * Florastor - take twice a day until completed * Lisinopril 10 mg daily for high blood pressure * [place] 5/325 - may take every 6 hours as needed for pain Follow-up with primary care provider later this week. Instructions: Cellulitis (GEN) Patient Disposition: HOME SELF-CARE Prescriptions: New hydrocodone-acetaminophen 5-325 mg Tablet 1 tab PO Q6HR PRN (Reason: pain) Qty: 15 0RF lisinopril 10 mg Tablet 10 mg PO DAILY Qty: 30 0RF Saccharomyces boulardii [Florastor] 250 mg Capsule 250 mg PO BID Qty: 12 0RF amoxicillin-pot clavulanate 875-125 mg Tablet 1 tab PO BID 5 Days Qty: 11 0RF Continued tamsulosin 0.4 mg capsule 0.4 mg PO DAILY diclofenac sodium 75 mg tablet,delayed release (DR/EC) 75 mg PO 2XD cholecalciferol (vitamin D3) 25 mcg (1,000 unit) capsule 25 mcg PO DAILY alprazolam [Xanax] 1 mg tablet 1 mg PO QDAY Discontinued cephalexin 500 mg capsule 500 mg PO Q8H Qty: 30 0RF Did you review [place] [employer] for ALL controlled substances?: No Discussed opioids are addictive and Narcan is available by prescription or from pharmacy.: No Condition: Stable
[2025-07-25 14:28] VITALS: BP 162/76; PULSE 68; RESP 20; TEMP 97.1
== END 2025-07-25 12:35 | disposition home or self-care (01) | DRG 603 ==
LOC: ED 16:56 → MEDSURG B 16:56 → OBSVTOIN 19:00 → MEDSURG B 21:00
PROVIDERS: ADMIT Hospitalist; ATTEND Nurse Practitioner Family